=== PATIENT | female | born 1940 | race Caucasian/White ===

== ENCOUNTER 2016-05-22 10:55 | Emergency (ER) | payer MEDICARE | END 2016-05-22 12:50 | disposition home or self-care (01) | LOC: ER 10:55 | DX: S97.111A Crushing injury of right great toe, initial encounter (principal); S97.121A Crushing injury of right lesser toe(s), initial encounter; S92.424A Nondisplaced fracture of distal phalanx of right great toe, initial encounter for closed fracture; S92.511A Displaced fracture of proximal phalanx of right lesser toe(s), initial encounter for closed fracture; I10 Essential (primary) hypertension; Z79.01 Long term (current) use of anticoagulants; Z88.0 Allergy status to penicillin; Z88.2 Allergy status to sulfonamides; Z90.710 Acquired absence of both cervix and uterus; W20.8XXA Other cause of strike by thrown, projected or falling object, initial encounter; Y92.009 Unspecified place in unspecified non-institutional (private) residence as the place of occurrence of the external cause ==